=== PATIENT | female | born 1980 | race Caucasian/White ===

== ENCOUNTER 2023-01-24 03:44 | Emergency (ER) | payer SELFPAY ==
[~2023-01-24] VITALS: Ht 165.1 cm; Wt 90.0 kg
[2023-01-24 03:59] VITALS: BP 127/79; PULSE 82; RESP 16; O2SAT 98
[2023-01-24 05:30] VITALS: TEMP 98.6
[2023-01-24] MEDS ORDERED: ACETAMINOPHEN 325MG TABLET PO STA (05:30)
== END 2023-01-24 07:29 | disposition home or self-care (01) ==
LOC: ER 03:44
DX: G56.01 Carpal tunnel syndrome, right upper limb (principal)
CPT/HCPCS: 29125; 73030; 81025; 99283